=== PATIENT | male | born 2000 | race African-American/Black ===

== ENCOUNTER 2020-06-29 19:53 | Emergency (ER) | payer BC, OTHER ==
[2020-06-29 22:04] LABS: HEMOGLOBIN 15.5 gm/dl (14.0-17.5); RED BLOOD COUNT 4.96 M/UL (4.20-5.50); WHITE BLOOD COUNT 7.5 K/UL (4.5-11.0)
[2020-06-29 22:26] LABS: BUN/CREATININE RATIO 19 (0-10)
== END 2020-06-29 23:20 | disposition short-term general hospital (02) ==
LOC: ER1 19:53
PROVIDERS: Emergency Medicine
DX: H54.61 Unqualified visual loss, right eye, normal vision left eye (principal); Z20.822 Contact with and (suspected) exposure to COVID-19; Z87.891 Personal history of nicotine dependence
CPT/HCPCS: 70450; 70496; 70498; 71045; 80053; 82550; 82553; 83605; 84484; 85025; 85610; 85730; 93005; 99285; Q9967; U0002